=== PATIENT | female | born 1965 | race Caucasian/White ===

== ENCOUNTER 2020-02-08 17:52 | Outpatient (CLI) | payer BC | END 2020-02-08 23:59 | disposition home or self-care (01) | LOC: LAB.R 17:52 | PROVIDERS: ATTEND Physician Assistant Medical | DX: R30.0 Dysuria (principal) | CPT/HCPCS: 87086 ==

== ENCOUNTER 2022-11-27 08:00 | Outpatient (CLI) | payer BC ==
--- NOTE | 2022-11-27 15:00 | XRAY Report ---
PROCEDURE: Chest 2 View X-Ray INDICATIONS: ACUTE COUGH TECHNIQUE: 2 views of the chest were acquired. COMPARISON: None. FINDINGS: Surgical changes and devices: None. Lungs and pleura: No pleural effusions or pneumothorax. Lungs are clear. Mediastinum: Mediastinal contours appear normal. Heart size is normal. Bones and chest wall: No suspicious bony lesions. Overlying soft tissues appear unremarkable. IMPRESSION: No acute cardiopulmonary process. Reviewed by: Yin Branch MD on 11/27/2022 2:58 PM PDT Approved by: Yin Branch MD on 11/27/2022 2:58 PM PDT Station ID: [id number]
== END 2022-11-27 23:59 | disposition home or self-care (01) ==
LOC: DI.S 08:00
PROVIDERS: ATTEND Emergency Medicine
DX: R05.1 Acute cough (principal)

== ENCOUNTER 2024-12-13 11:09 | Observation (INO) ==
[~2024-12-13 11:09] MED LIST: iohexoL-300 100 ML VIAL ONE
--- NOTE | 2024-12-13 11:13 | ED Physician Documentation ---
History of Present Illness Stated complaint Stated Complaint: CODE STROKE Chief complaint Chief Complaint: Neuro History obtained from History obtained from: Patient and EMS Additonal information Additional information: 59-year-old woman who had a left lower lobectomy for lung cancer very recently, about 10 days ago but with no history of neurologic problems, stroke or TIA. At 10 AM she developed aphasia and a flaccid left side. EMS was summoned and found her to have significant deficits, with normal blood sugar and blood pressure on the way here. During transport she has improved significantly and is back to normal. She is not anticoagulated. She tells me that she will not require any adjuvant therapy such as chemotherapy or radiation for the lung cancer. "They got it all." Meds/Allgy Home Medications Ambulatory Orders Medication Instructions Recorded Confirmed gabapentin 100 mg capsule mg 12/13/24 oxycodone 5 mg tablet 5 mg PO .6 hours PRN pain 12/13/24 Allergies Allergies Allergy/AdvReac Type Severity Reaction Status Date / Time Sulfa (Sulfonamide Allergy Unknown rash Verified 12/13/24 11:38 Antibiotics) PFSH Active Problems All Active Problems (Updated 12/13/24 @ 12:14 by Deangelo Hall MD) Asymptomatic occlusion of middle cerebral artery (Acute) Brain TIA (Acute) Social History Social History Do you feel safe in your home environment?: Yes Suffered physical, verbal, emotional, or financial abuse?: No Exam Exam Vital Signs: Vital Signs x48h Temp Pulse Resp BP Pulse Ox 12/13/24 11:30 74 17 120/59 L 96 12/13/24 11:15 36.3 C L 69 20 119/72 96 Constitutional normal general appearance and no apparent distress Respiratory breath sounds equal bilaterally, normal respiratory effort and clear to auscultation bilaterally Cardiovascular normal heart rate noted, regular rhythm noted and no murmur Gastrointestinal abdomen soft to palpation and nontender to palpation Neurology cotton tier II-XII intact, no movement abnormality noted, no focal motor deficit noted and GCS 15 NIH stroke scale of 0 on initial evaluation at 11:10 AM Results Vitals Vitals: Vital Signs - 24 hr 12/13/24 11:15 12/13/24 11:30 Temperature 36.3 C L Temperature Source Temporal Artery Scan Pulse Rate 69 74 Respiratory Rate 20 17 Blood Pressure 119/72 120/59 L O2 Saturation 96 96 O2 Source Room air Room air Pain Intensity 0 Oxygen O2 Source Room air EKG (time done) 1120: EKG releavant findings:: EKG personally interpreted by author of this note. Relevant findings are: Normal sinus rhythm with rate of 67. Probable LAE. No ST elevation or depression. No arrhythmias or ectopy. Labs Labs: Laboratory Tests 12/13/24 11:18 WBC 9.8 RBC 4.24 Hgb 12.4 Hct 39.0 MCV 92.0 MCH 29.2 MCHC 31.8 L RDW 13.5 Plt Count 290 MPV 9.2 Neut # (Auto) 6.5 Lymph # (Auto) 2.2 Sampson # (Auto) 0.8 Eos # (Auto) 0.2 Baso # (Auto) 0.1 Absolute Nucleated RBC 0.00 Nucleated RBC % 0.0 PT 12.0 INR 1.1 Sodium 140 Potassium 4.3 Chloride 106 Carbon Dioxide 28 Anion Gap 6.0 BUN 22 H Creatinine 0.8 Estimated GFR (MDRD) 73 L Glucose 139 H Calcium 9.3 Total Bilirubin 0.3 AST 12 ALT 12 Alkaline Phosphatase 63 Total Protein 6.3 L Albumin 4.1 Globulin 2.2 Albumin/Globulin Ratio 1.9 Lipase 10 L PD Medical Decision Making ED course ED course: 59-year-old woman who is 13 days out from a thoracotomy with left lower lobectomy (Clarified with family the surgery was on November 30) presents with strokelike symptoms resolved on arrival consistent with a TIA. She was sent over for CT/CTA. The plain CT was normal, but the CTA was read as a distal right M2 occlusion of the MCA. I discussed case with our telestroke neurologist, Dr. Elmore who recommended admission for MRI and aspirin therapy. No thrombolytics nor transfer for LVO. Discussed with family. They are desirous of being transferred to [place] for neurologic eval. She was administered aspirin and at the family's request [place] was called for potential transfer around 12:15 PM. Discharge Plan Discharge Patient Disposition: 02 Transfer Acute Care Hosp Condition: Stable Clinical Impression: Brain TIA, Asymptomatic occlusion of middle cerebral artery Stand Alone Forms: PCP List
[2024-12-13 11:24] LABS: BASOPHILS # (AUTO) 0.1 10^3/uL (0.0-0.1); BASOPHILS % (AUTO) 0.8 %; EOSINOPHILS # (AUTO) 0.2 10^3/uL (0.0-0.7); EOSINOPHILS % (AUTO) 1.8 %; HGB - HEMOGLOBIN 12.4 g/dL (12.0-16.0); LYMPHOCYTES # (AUTO) 2.2 10^3/uL (1.5-3.5); LYMPHOCYTES % (AUTO) 22.3 %; MEAN CORPUSCULAR HEMOGLOBIN 29.2 pg (27.0-31.0); MEAN CORPUSCULAR HGB CONC 31.8 g/dL (32.0-36.0); MEAN PLATELET VOLUME 9.2 fL (7.9-10.8); MONOCYTES # (AUTO) 0.8 10^3/uL (0.0-1.0); MONOCYTES % (AUTO) 8.2 %; NEUTROPHILS # (AUTO) 6.5 10^3/uL (1.5-6.6); NEUTROPHILS % (AUTO) 66.5 %; PLT - PLATELET COUNT 290 10^3/uL (130-450); RED BLOOD COUNT 4.24 10^6/uL (4.20-5.40); RED CELL DISTRIBUTION WIDTH 13.5 % (12.0-15.0); WHITE BLOOD COUNT 9.8 x10^3/uL (4.8-10.8)
[2024-12-13 11:29] LABS: INR 1.1 (0.8-1.2)
[2024-12-13 11:41] LABS: ALBUMIN 4.1 g/dL (3.2-5.5); ALBUMIN/GLOBULIN RATIO 1.9 (1.0-2.2); BILIRUBIN,TOTAL 0.3 mg/dL (0.2-1.0); CALCIUM 9.3 mg/dL (8.5-10.3); CREATININE 0.8 mg/dL (0.6-1.3); POTASSIUM 4.3 mmol/L (3.5-4.5); TOTAL PROTEIN 6.3 g/dL (6.4-8.9)
--- NOTE | 2024-12-13 11:43 | CT Report ---
PROCEDURE: CT Head W/O Stroke Protocol INDICATIONS: Neuro deficit, acute, stroke suspected TECHNIQUE: Noncontrast angled axial sections acquired from the foramen magnum to the vertex, with coronal reformats. For radiation dose reduction, the following was used: automated exposure control, adjustment of mA and/or kV according to patient size. COMPARISON: None. FINDINGS: Image quality: Diagnostic CSF spaces: Basal cisterns are patent. Lateral ventricles are symmetric. Volume: Vascular calcifications. Periventricular white matter disease is commonly seen with chronic microangiopathy. Volume loss is present. These findings are mild to moderate . Brain: No large territory loss of cain-white differentiation or acute intracranial hemorrhage Craniofacial structures: No displaced fracture. Sinuses are clear. Orbits are intact. IMPRESSION: No acute intracranial abnormality. Consider MRI if there is high concern for infarction. Discussed with ED WH This study fulfills neurological imaging criteria for inclusion or exclusion of acute stroke therapies based on available published neurological imaging guidelines. Reviewed by: Michel Kamara MD on 12/13/2024 11:41 AM PDT Approved by: Michel Kamara MD on 12/13/2024 11:41 AM PDT Station ID: [id number]
--- NOTE | 2024-12-13 11:54 | CT Report ---
PROCEDURE: CT Angio Head/Neck INDICATIONS: cva sx CONTRAST: 80ml omni 300 TECHNIQUE: After the administration of intravenous contrast, images werenacquired from the aortic arch through the [place] of [place]. 3-dimensional bagleki-hhnpgnzsf-odgosmfhsf (MIP) and volume rendering reformats were acquired of the central intracranial vasculature and neck separately. COMPARISON: None. FINDINGS: Image quality: Diagnostic Head angiography Anterior circulation: ICAs: Mild calcifications ACAs: Patent MCAs: Possible narrowing versus occlusion in the right superior M2 branch. Left MCA appears patent AComm: no aneurysm Venous sinuses: Not well assessed on this study Posterior circulation: Dominance: Right Vertebral arteries: Patent but tortuous Basilar artery: High-grade narrowing is seen at the basilar tip, just past the right AICAs. PComms: Dominant supply to the quantometer operator quantometer operator: Patent Neck angiography Aortic arch and subclavian arteries: No stenosis CCAs: Patent ICA origins (by NASCET criteria): no hemodynamically significant narrowing. ICAs: Patent ECAs: origins are patent. Vertebral arteries: Patent Soft tissues: no significant mass, aneurysm, or lymphadenopathy Lung apices: Azygos fissure. No apical pneumothorax Bones: Degenerative osseous changes. IMPRESSION: Right superior branch M2 occlusion (/). Discussed with Dr. Hall. High-grade narrowing at the basilar tip, favored to be chronic, as there is dominant supply to the quantometer operator from the communicating arteries. Other findings above. The estimate of stenosis included in the report of the imaging study was calculated using the NASCET method Reviewed by: Michel Kamara MD on 12/13/2024 11:53 AM PDT Approved by: Michel Kamara MD on 12/13/2024 11:53 AM PDT Station ID: [id number]
[2024-12-13] MEDS: ASPIRIN CHEW 81 MG TABLET PO STA (12:28)
[2024-12-13] MEDS: iohexoL-300 100 ML VIAL IVP ONE (12:31)
--- NOTE | 2024-12-13 14:08 | ED Physician Documentation ---
ED Addendum Addendum Addendum: Patient was signed out to me by Dr. Hall, see his note for full H&P on this patient. Briefly this is a 59-year-old female history of lung cancer lobectomy about 2 weeks ago at [facility]. She presented to the emergency department today with left-sided paralysis and slurred speech. This resolved but she has mild residual numbness in the left arm. She does appear to have an occlusion at the superior branch of the M2 artery. Dr. Vinson spoke with Dr. Elmore, teleneurology who recommended usual stroke care. Family requested transfer to [facility]. I spoke with Dr. Pearson, neurology at [facility] who agrees that the treatment for her case would be usual stroke care, MRI, echo and starting a DOAC. [facility] states that they are currently at 110% bed capacity. Family is going to discuss going to [place] versus staying at the hospital here. Patient and family are comfortable staying here. Discussed the case with the hospitalist who accepts. This document was made in part using voice recognition software. While efforts are made to proofread this document, sound alike and grammatical errors may occur. Discharge Plan Discharge Patient Disposition: 64 [facility] DC/Xfer Condition: Stable Clinical Impression: Brain TIA, Asymptomatic occlusion of middle cerebral artery Interventions: ED Admission Assessment Last Done: 12/13/24 16:07
[2024-12-13] MEDS: SODIUM CHLORIDE 0.9% 1,000 ML IV STA (15:09)
[2024-12-13] MEDS: ACETAMINOPHEN 325 MG TABLET PO STA (15:44)
[2024-12-13] MEDS ORDERED: ONDANSETRON ODT 4 MG TABLET TL PRN (16:10)
[2024-12-13] MEDS ORDERED: SODIUM CHLORIDE FLUSH 0.9% 10 ML SYRINGE IVP PRN (16:10)
--- NOTE | 2024-12-13 16:39 | HISTORY & PHYSICAL EXAMINATION ---
Chief Complaint Chief Complaint Chief Complaint: Left-sided weakness and numbness History of Present Illness Admitted From Admitted From:: Emergency department History Obtained From Records Reviewed: ED records History obtained from: Patient, , Dr. Jean Baptiste-ED attending Exam Limitations: None History of Present Illness HPI Comment/Other: Patient is a 59-year-old female who is 2 weeks s/p left lower lobe lobectomy due to adenocarcinoma of the lung, history of restless leg syndrome, history of hyperlipidemia, presenting to the ED with left-sided weakness and numbness as well as left-sided facial droop with slurred speech. Symptoms started at approximately 10 AM this morning and resolved approximately 2 hours later around the time at which she presented to the ED for further evaluation. She initially denied any blurry vision but states that shortly before admission she had a brief episode of seeing halos in the left visual field that have since resolved. She denies any headache.She denies any previous history of stroke, TIA, or other neurological events.Per patient, she has no lymphatic spread or metastatic disease and per patient, resection was definitive treatment for her cancer. She denies history of smoking. She denies history of cardiac disease or diabetes. She denies history of A-fib or known arrhythmia however she does state on review of systems that she has had episodes of a feeling of fast heartbeat in the past. She does wear an Apple Watch but is not sure if it is activated to detect atrial fibrillation. Here in the ED the patient was hemodynamically stable with normal blood pressures and otherwise normal vital signs. Lab work was reassuring and noncontributory. Initial head CT was unremarkable, CT angiogram of the head showed evidence of M2 occlusion but patent ICA and no other significant stenosis, no LVO. Per telestroke neurologist, no further treatment warranted at this time given resolution of symptoms so patient is not a candidate for thrombolytics. However, diagnostic workup is indicated including MRI, echocardiogram, A1c, lipid panel. Also, neurologist recommends starting patient on DOAC tomorrow. Meds/Allgy Home Medications Ambulatory Orders Medication Instructions Recorded Confirmed gabapentin 100 mg capsule mg 12/13/24 oxycodone 5 mg tablet 5 mg PO .6 hours PRN pain 12/13/24 Allergies Allergies Allergy/AdvReac Type Severity Reaction Status Date / Time Sulfa (Sulfonamide Allergy Unknown rash Verified 12/13/24 11:38 Antibiotics) PFSH Active Problems All Active Problems (Updated 12/13/24 @ 16:35 by Johnathon Thomas MD) RLS (restless legs syndrome) (Acute) HLD (hyperlipidemia) (Acute) Occlusion of middle cerebral artery (Acute) Asymptomatic occlusion of middle cerebral artery (Acute) Brain TIA (Acute) Surgical History Surgical History (Updated 12/13/24 @ 12:30 by Vandana Logan RN) History of lobectomy of lung Social History Social History Smoking Status: Never smoker Do you dip or chew tobacco?: No Relationship: Child Level: Independent Do you feel safe in your home environment?: Yes Suffered physical, verbal, emotional, or financial abuse?: No POLST Patient has POLST: No Review of Systems Status of ROS: 10 or more systems reviewed and unremarkable except as noted in history and below Exam Exam Vital Signs: Vital Signs x48h Temp Pulse Resp BP Pulse Ox 12/13/24 15:45 85 22 124/79 96 12/13/24 15:11 36.5 C 77 18 120/70 96 12/13/24 14:02 81 22 130/73 97 12/13/24 13:30 77 21 130/73 99 12/13/24 13:00 86 13 120/68 97 12/13/24 12:30 78 18 127/67 98 12/13/24 12:15 83 83 H 123/77 18 L 12/13/24 12:00 74 12 117/70 99 12/13/24 11:45 72 21 105/68 94 12/13/24 11:30 74 17 120/59 L 96 12/13/24 11:15 36.3 C L 69 20 119/72 96 Constitutional normal general appearance and no apparent distress Respiratory breath sounds equal bilaterally, normal respiratory effort and clear to auscultation bilaterally Cardiovascular normal heart rate noted, regular rhythm noted and no murmur Gastrointestinal abdomen soft to palpation and nontender to palpation Neurology vice president lending II-XII intact, no movement abnormality noted, no focal motor deficit noted and GCS 15 NIH stroke scale of 0 on my exam at approximately 4 PM Psychiatry mental status grossly normal, oriented x3 and thought process normal Conclusion/Plan Problem List (1) Brain TIA: Plan: * Symptoms resolved * Negative head CT * CT angiogram showing M2 occlusion * Place in obs with tele * Check ehco and MRI in am * Check A1C, lipid panel in am * Permissive HTN * IVF/hydration * Regular diet * ASA given in ED * Resume ASA in am * Per neuro reccs, DOAC tomorrow (2) Occlusion of middle cerebral artery: Plan: * See above (3) History of lobectomy of lung: Plan: * Pt w/ hx of lung CA, now s/p lobectomy 2 weeks ago * Check xray to r/o PTX as pt had some transient chest wall pain earlier * Pt considered higher risk for clot formation due to CA hx (4) HLD (hyperlipidemia): Plan: * Check lipid in am * Atorvastatin 40 mg in am (5) RLS (restless legs syndrome): Plan: * Resume home gabapentin Lab Results Lab results reviewed: Yes 12/13/24 11:18 12/13/24 11:18 Diagnostic Imaging Results Diagnostic Imaging Results: positive Final report reviewed Core Measures Anticipated LOS I expect patient to be DC'd or transferred within 96 hours.: Yes DVT/VTE - Prophylaxis VTE/DVT Device ordered at admit?: Yes Stroke - Rehab Assessment Rehab services assessment to be ordered?: Yes
--- NOTE | 2024-12-13 17:45 | XRAY Report ---
PROCEDURE: XR Chest 1V INDICATIONS: chest pain, recent lobectomy of LLL TECHNIQUE: One view of the chest was acquired. COMPARISON: 11/27/2022. FINDINGS: Surgical changes and devices: None. Lungs and pleura: Small left pleural effusion with left basilar atelectasis. No pneumothorax. Right lung is clear. Mediastinum: Mediastinal contours appear normal. Heart size is normal. Bones and chest wall: No suspicious bony lesions. Overlying soft tissues appear unremarkable. IMPRESSION: Small left pleural effusion and left basilar atelectasis. No pneumothorax. Right lung is clear. Reviewed by: Cricket Barboza MD on 12/13/2024 5:44 PM PDT Approved by: Cricket Barboza MD on 12/13/2024 5:44 PM PDT Station ID: [id number]
[2024-12-13] MEDS: SODIUM CHLORIDE FLUSH 0.9% 10 ML SYRINGE IVP SCH (18:39)
[2024-12-13] MEDS: GABAPENTIN 100 MG CAPSULE PO SCH (21:35)
[2024-12-13] MEDS: LIDOCAINE PATCH 4% TOP SCH (21:35)
[2024-12-13] MEDS: ATORVASTATIN 40 MG TABLET PO SCH (21:35)
[2024-12-13] MEDS: SENNA 8.6 MG TABLET PO SCH (21:35)
[2024-12-13] MEDS: oxyCODONE 5 MG TABLET PO PRN (21:35)
[2024-12-14] MEDS: ACETAMINOPHEN 325 MG TABLET PO PRN (00:33)
[2024-12-14] MEDS: IBUPROFEN 600 MG TABLET PO ONE (04:42)
[2024-12-14 04:48] LABS: BASOPHILS # (AUTO) 0.1 10^3/uL (0.0-0.1); BASOPHILS % (AUTO) 0.8 %; EOSINOPHILS # (AUTO) 0.2 10^3/uL (0.0-0.7); EOSINOPHILS % (AUTO) 2.5 %; HGB - HEMOGLOBIN 11.3 g/dL (12.0-16.0); LYMPHOCYTES # (AUTO) 2.2 10^3/uL (1.5-3.5); LYMPHOCYTES % (AUTO) 26.3 %; MEAN CORPUSCULAR HEMOGLOBIN 28.9 pg (27.0-31.0); MEAN CORPUSCULAR HGB CONC 31.4 g/dL (32.0-36.0); MEAN CORPUSCULAR VOLUME 92.1 fL (81.0-99.0); MEAN PLATELET VOLUME 9.7 fL (7.9-10.8); MONOCYTES # (AUTO) 0.7 10^3/uL (0.0-1.0); MONOCYTES % (AUTO) 8.2 %; NEUTROPHILS # (AUTO) 5.2 10^3/uL (1.5-6.6); PLT - PLATELET COUNT 259 10^3/uL (130-450); RED BLOOD COUNT 3.91 10^6/uL (4.20-5.40); RED CELL DISTRIBUTION WIDTH 13.8 % (12.0-15.0); WHITE BLOOD COUNT 8.4 x10^3/uL (4.8-10.8)
[2024-12-14 05:08] LABS: BUN - BLOOD UREA NITROGEN 18 mg/dL (6-20); CALCIUM 8.9 mg/dL (8.5-10.3); CARBON DIOXIDE - CO2 26 mmol/L (21-32); CHLORIDE 110 mmol/L (101-111); CHOL/HDL RATIO 3.3 (<4.4); CHOLESTEROL 173 mg/dL; CREATININE 0.7 mg/dL (0.6-1.3); GFR - MDRD 85 (>89); GLUCOSE 104 mg/dL (74-104); HDL CHOLESTEROL 53 mg/dL; LDL CHOLESTEROL,CALCULATED 105 mg/dL; POTASSIUM 4.2 mmol/L (3.5-4.5); SODIUM 141 mmol/L (135-145); TRIGLYCERIDES 77 mg/dL; VLDL CHOLESTEROL 15 mg/dL
[2024-12-14 07:50] LABS: ESTIMATED AVERAGE GLUCOSE 117 mg/dL (70-100); HEMOGLOBIN A1c% 5.7 % (4.27-6.07)
[2024-12-14] MEDS: ASPIRIN CHEW 81 MG TABLET PO SCH (10:15)
--- NOTE | 2024-12-14 11:27 | PHARMACY PROGRESS NOTE ---
Best Possible Medication History Admit Date and Time: 12/13/24 115102 Home Medications Medication Instructions Recorded Confirmed Type gabapentin 100 mg capsule 200 mg PO TID 12/13/2412/14 History oxycodone 5 mg tablet 5 mg PO HS PRN pain 12/13/24 12/14/24 History acetaminophen 500 mg tablet 500 mg PO DAILY PRN pain 0 12/14/24 12/14/24 History (Tylenol Extra Strength) rosuvastatin 5 mg tablet 5 mg PO DAILY 12/14/2412/14 History Processed by: Pharmacy (pharmacy sales representativeKerry) Medications reviewed in ED?: No Medication History completed: Yes Patient Interview: Completed Secondary Source(s): Insurance records (Patient states she takes rosuvastatin 5 mg daily, but last fill shows as May 2024) [facility] Statement: As the person ultimately responsible for medication therapy, providers are able to order a medication from an existing home medication list in [facility] via the "Reconcile Routine" prior to Confirmation of that medication by family readiness support assistant. Such practice is discouraged except when the physician, in their clinical judgment, deems that a medical need exists for a medication without regard to previous use.
--- NOTE | 2024-12-14 13:07 | MRI Report ---
PROCEDURE: MRI Brain WO INDICATIONS: TIA vs CVA, L sidea weakness TECHNIQUE: Multisequence MRI of the brain was performed without intravenous contrast. COMPARISON: Correlation is made with CT images from 12/14/2024 FINDINGS: Image quality: Excellent. CSF Spaces: Basal cisterns are patent. No extra-axial fluid collections. Ventricles are normal in size and shape. Brain: Abnormal diffusion-weighted signal can be seen involving the right frontal parietal region superiorly. Developing T2 weighted signal can be seen within this region, as demonstrated on series 7 image 17. There is a mild degree of susceptibility artifact within this region. No intracranial hemorrhage. Olsen/white matter interface is normal. Brainstem appears normal. No chronic ischemic insults. Normal intravascular flow voids are present. Skull and face: Calvarium has normal marrow signal. Orbits appear normal. Sinuses: Sinuses and mastoids are clear. IMPRESSION: A subacute infarction is seen within the superior aspect of the right frontoparietal region. This cannot be seen on the recent CT, even in retrospect. There is susceptibility artifact within this region, which is consistent with interval petechial hemorrhage. Note: Case discussed by telephone with Dr. Erickson at 1:04 PM [place] time on 12/14/2024. Reviewed by: Immanuel Gagnon MD on 12/14/2024 12:05 PM MARCELINO Approved by: Immanuel Gagnon MD on 12/14/2024 12:05 PM MARCELINO Station ID: [id number]
--- NOTE | 2024-12-14 14:07 | PT Plan of Care ---
PT Inpatient Plan of Care DIAGNOSIS Diagnosis: CVA Referring Provider: Johnathon Thomas Patient Status: Observation CHIEF COMPLAINT Chief Complaint: L sided weakness Onset of Chief Complaint: ANDROID FRAMEWORK DEVELOPER on 12/13/24 MEDICAL/SURGICAL HISTORY Surgical History (Updated 12/13/24 @ 12:30 by Vandana Logan RN) History of lobectomy of lung BALANCE/FUNCTIONAL RESULTS Sitting Balance: Good Standing Balance: Good Kilgore Balance Evaluation Total Score: 56 Kilgore Balance Test Interpretation: Low Fall Risk ASSESSMENT Assessment: The pt is a 59 y/o who arrived to the ED on 12/13/24 due to sudden onset of L sided weakness, she was hospitalized with TIA vs CVA and recent MRI was remarkable for subacute infarct within the superior aspect of the right frontoparietal region. PMH includes lung CA and she is ~2 weeks s/p L lobectomy, please see chart for complete medical hx. The pt was received sitting comfortably while visiting with her family. She presented today without significant asymmetry of MMT in either LE and UE, intact sensation grossly, and good standing balance with a perfect Kilgore score of 56. She did, however have mild coordination deficits in L UE and LE. At this time recommend that the pt DC home with OPPT for further rehab if coordination deficits persist. At the end of the session the pt had all needs met and was being taken to have an MRI. RN, PHOTORESIST CONTACT PRINTER, and MD all updated on pt's status and DC rec. No goals will be set as this is an eval only. PATIENT/FAMILY GOALS Patient/Family Goals: To be able to go home safely PLAN Frequency: Evaluation only, no further P.T. DISCHARGE RECOMMENDATIONS Discharge Location: Previous Living Situation Support/Services Needed: Outpt. P.T. Other Discharge Equipment: no required DME Transport Needs at Discharge: Personal vehicle
--- NOTE | 2024-12-14 17:55 | PROVIDER PROGRESS NOTE ---
Subjective Prog Note Date Prog Note Date: 12/14/24 Prog Note Time: 17:48 Subjective Pt reports feeling: Improved Subjective: Subjectively the patient is feeling much better when it comes to her stroke symptoms. Her left upper and lower extremities are reported to be almost entirely normalized. She has no symptoms of facial droop, or speech difficulty. She does however report some mood instability that started yesterday after she presented for the stroke. Even discussing this with me she started tearing up. She also reports some degree of anxiety. Current Medications Current Medications Current Medications: Current Medications Generic Name Dose Route Start Last Admin Trade Name Freq PRN Reason Stop Dose Admin Acetaminophen 650 mg 12/13/24 16:10 12/14/24 13:13 Acetaminophen 325 Mg Tablet PO 650 mg Q4HR PRN Administration Pain 1 to 4, or Fever Aspirin 81 mg 12/14/24 09:00 12/14/24 10:15 Aspirin Chew 81 Mg Tablet PO 81 mg DAILY JOEL Administration Atorvastatin Calcium 40 mg 12/13/24 21:00 12/13/24 21:35 Atorvastatin 40 Mg Tablet PO 40 mg QPM JOEL Administration Gabapentin 200 mg 12/13/24 22:00 12/14/24 14:07 Gabapentin 100 Mg Capsule PO 200 mg TID JOEL Administration Lidocaine 1 patch 12/13/24 21:00 12/14/24 13:22 Lidocaine Patch 4% TOP Not Given DAILY JOLE Ondansetron HCl 4 mg 12/13/24 16:10 Ondansetron Odt 4 Mg Tablet TL Q6HR PRN Nausea / Vomiting Oxycodone HCl 5 mg 12/13/24 17:06 12/13/24 21:35 Oxycodone 5 Mg Tablet PO 5 mg Q8H PRN Administration Moderate Pain (Level 4-6) Senna 8.6 mg 12/13/24 21:00 12/14/24 10:15 Senna 8.6 Mg Tablet PO 8.6 mg BID JOEL Administration Sodium Chloride 10 ml 12/13/24 16:10 Sodium Chloride Flush 0.9% 10 Ml Syringe IVP PRN PRN NEEDED PER PROVIDER ORDERS Sodium Chloride 10 ml 12/13/24 17:00 12/14/24 10:15 Sodium Chloride Flush 0.9% 10 Ml Syringe IVP 10 ml 0100,0900,1700 JOEL Administration Objective Vital Signs/Intake & Output Reviewed Vital Signs: Yes Vital Signs: Vital Signs x48h Temp Pulse Resp BP Pulse Ox 12/14/24 15:41 37.4 C 73 22 127/86 98 12/14/24 13:00 36.6 C 81 16 116/76 96 Intake & Output: Intake & Output 12/11/24 12/12/24 12/13/24 12/14/24 23:59 23:59 23:59 23:59 Intake Total 1120 / 1120 1580 / 1580 Balance 1120 / 1120 1580 / 1580 Weight (kg) 66.8 kg Objective General Appearance: positive No acute distress and Alert Eyes Bilateral: positive Normal inspection, PERRL and EOMI ENT: positive ENT inspection nml Neck: positive Nml inspection Respiratory: positive Chest non-tender and No respiratory distress; negative Wheezes Cardiovascular: positive Regular rate & rhythm, No murmur and No gallop Abdomen: positive Non-tender, No organomegaly and Nml bowel sounds Skin: positive Color nml Extremities: positive Full ROM and Nml appearance Neurologic/Psychiatric: positive Oriented x3, CN's nml (2-12), Motor nml, Sensation nml and Mood/affect nml (She did become intermittently tearful but generally speaking her mood is appropriate); negative Weakness, Facial droop or Slurred/abnml speech Lab Results 12/15/24 04:10 12/15/24 04:10 Other Labs: Lab Results x24hrs 12/14/24 Range/Units 04:27 WBC 8.4 (4.8-10.8) x10^3/uL RBC 3.91 L (4.20-5.40) 10^6/uL Hgb 11.3 L (12.0-16.0) g/dL Hct 36.0 L (37.0-47.0) % MCV 92.1 (81.0-99.0) fL MCH 28.9 (27.0-31.0) pg MCHC 31.4 L (32.0-36.0) g/dL RDW 13.8 (12.0-15.0) % Plt Count 259 (130-450) 10^3/uL MPV 9.7 (7.9-10.8) fL Neut # (Auto) 5.2 (1.5-6.6) 10^3/uL Lymph # (Auto) 2.2 (1.5-3.5) 10^3/uL [place]one # (Auto) 0.7 (0.0-1.0) 10^3/uL Eos # (Auto) 0.2 (0.0-0.7) 10^3/uL Baso # (Auto) 0.1 (0.0-0.1) 10^3/uL Absolute Nucleated RBC 0.00 x10^3/uL Nucleated RBC % 0.0 /100WBC Sodium 141 (135-145) mmol/L Potassium 4.2 (3.5-4.5) mmol/L Chloride 110 (101-111) mmol/L Carbon Dioxide 26 (21-32) mmol/L Anion Gap 5.0 L (6-13) BUN 18 (6-20) mg/dL Creatinine 0.7 (0.6-1.3) mg/dL Estimated GFR (MDRD) 85 L (>89) Glucose 104 (74-104) mg/dL Estimat Average Glucose 117 H (70-100) mg/dL Hemoglobin A1c % 5.7 (4.27-6.07) % Calcium 8.9 (8.5-10.3) mg/dL Triglycerides 77 mg/dL Cholesterol 173 ( - 200) mg/dL LDL Cholesterol, Calc 105 ( - 129) mg/dL VLDL Cholesterol 15 mg/dL HDL Cholesterol 53 L (60 - ) mg/dL LDL/HDL Ratio 2.0 (<4.4) Cholesterol/HDL Ratio 3.3 (<4.4) Diagnostic Imaging Diagnostic Imaging Results: positive Final report reviewed Assessment/Plan Problem List (1) Cerebrovascular accident (CVA) involving middle cerebral artery territory: Impression: * MRI report reveals subacute infarcts involving the right frontal parietal region there is also interval petechial hemorrhage * I discussed these findings with the radiologist Dr. Gagnon, as well as the neurologist on-call at [facility] Dr. Preston Gonsales. He was able to review the MRI images that were pushed to their system. After doing so in discussing the patient with me he felt that appropriate post stroke treatment would be full dose aspirin 325 mg once daily. He did not feel that at this point she needed any further repeat imaging. He stated that as long as the echocardiogram does not reveal evidence of a thrombus then this can start tomorrow otherwise he would recommend waiting 4 days. * In addition, he stated that if atrial fibrillation is not confirmed, he would not recommend initiating DOAC therapy. He does however recommend outpatient follow-up with the [facility] neuro clinic who can be reached at [phone]. * At this time, echocardiogram is pending report * He also recommended outpatient workup for suspected paroxysmal atrial fibrillation, and the patient confirms that she already has a Zio patch on order * Patient elected to stay overnight for further observation with continued telemetry monitoring awaiting echocardiogram results * Given that the patient will be in house, I will defer aspirin until echocardiogram is read, most likely tomorrow (2) History of lobectomy of lung: Impression: * This is thought to be definitive treatment for her lung cancer, and chest x- ray reveals no evidence of pneumothorax though there is trace pleural effusion Patient is otherwise stable though she does take gabapentin for both some of the pleuritic pain as well as restless leg syndrome (3) HLD (hyperlipidemia): Impression: * Patient's lipid panel reviewed, LDL slightly elevated at 105 * Will continue atorvastatin 40 mg daily (4) RLS (restless legs syndrome): Impression: * Continue gabapentin * Patient also reporting some anxiety difficulty sleeping, will add as needed hydroxyzine and if still ineffective could consider adding trazodone as needed
[2024-12-14] MEDS: traZODone 50 MG TABLET PO PRN (20:11)
[2024-12-14] MEDS: hydrOXYzine PAMOATE 25 MG CAPSULE PO PRN (20:11)
[2024-12-15 04:45] LABS: BASOPHILS # (AUTO) 0.1 10^3/uL (0.0-0.1); EOSINOPHILS # (AUTO) 0.2 10^3/uL (0.0-0.7); EOSINOPHILS % (AUTO) 2.7 %; HCT - HEMATOCRIT 35.9 % (37.0-47.0); HGB - HEMOGLOBIN 11.7 g/dL (12.0-16.0); LYMPHOCYTES % (AUTO) 24.9 %; MEAN CORPUSCULAR HEMOGLOBIN 29.5 pg (27.0-31.0); MEAN CORPUSCULAR HGB CONC 32.6 g/dL (32.0-36.0); MEAN CORPUSCULAR VOLUME 90.4 fL (81.0-99.0); MEAN PLATELET VOLUME 9.7 fL (7.9-10.8); MONOCYTES # (AUTO) 0.8 10^3/uL (0.0-1.0); NEUTROPHILS # (AUTO) 4.9 10^3/uL (1.5-6.6); NEUTROPHILS % (AUTO) 61.3 %; PLT - PLATELET COUNT 261 10^3/uL (130-450); RED BLOOD COUNT 3.97 10^6/uL (4.20-5.40); RED CELL DISTRIBUTION WIDTH 13.9 % (12.0-15.0)
[2024-12-15 05:04] LABS: CREATININE 0.8 mg/dL (0.6-1.3)
--- NOTE | 2024-12-15 12:41 | ECHO Report ---
Version: 1 Study ID: [id number] [id number] Adult Echocardiogram Report Name: RICHARD PACHECO Study Date: 12/14/2024, 2: 51 PM Patient Location: [id number] HR: 73 bpm : 1965 (MM/DD/YYYY) Gender: Female Height: 65 in Age: 59 Years Weight: 147 lb Reason For Study: TIA vs CVA History: Subopt. and limited images due to Supine, Breast implants and surg. wound under left breast. Interpretation Summary 1. The left ventricle is normal in size. There is ormal left ventricular wall thickness. No thrombus seen in the left ventricle. Normal systolic function with EF 60-65%. 2. The right ventricle is normal in size and function. 3. Negative for ASD. Negative Saline Contrast study (Bubble Study). No chunt noted. 4. No valvular abnormality noted. Left Ventricle: The left ventricle is normal in size. There is normal left ventricular wall thickness. No thrombus seen in the left ventricle. The left ventricular ejection fraction is normal. The visual left ventricular ejection fraction is estimated at 60 to 65%. The overall diastolic pattern is one of normal left ventricular relaxation and filling pressures. Right Ventricle: The right ventricle is normal in size and function. Aortic Valve: The aortic valve is normal in structure and function. No hemodynamically significant valvular aortic stenosis. No aortic regurgitation is present. Mitral Valve: The mitral valve leaflets are structurally normal with normal motion. Doming of the mitral leaflets is present. There is trace mitral regurgitation. Tricuspid Valve: The tricuspid valve is structurally normal. There is no tricuspid stenosis. Trace tricuspid regurgitation present. Pulmonic Valve: The pulmonic valve is normal in structure and function. Trace pulmonic valvular regurgitation is present. Left Atrium: The left atrial size is normal. Right Atrium: Right atrial size is normal. Atrial Septum: The interatrial septum appears normal, without evidence of shunt by 2D imaging and color Doppler. Test was negative for ASD. Negative Saline Contrast study(Bubble Study). Aorta: The ascending aorta is normal in size. Pulmonary Artery: The pulmonary artery is normal size. Inferior vena cava dynamics indicate normal right atrial pressures. The right ventricular systolic pressure is 23mmHg. Pericardium/Pleural Space: There is no pericardial effusion. A left pleural effusion is present. Doppler Measurements & Calculations Ao max P.9 mmHg Ao mean P.73 mmHg Ao V2 max: 85.6 cm/sec Ao V2 mean: 62.5 cm/sec Ao V2 VTI: 16.1 cm LV V1 max: 77.4 cm/sec LV V1 max P.39 mmHg LV V1 mean: 54.1 cm/sec LV V1 mean P.33 mmHg LV V1 VTI: 15.7 cm MV A max pepe: 78.9 cm/sec MV dec time: 0.28 sec MV DVI-pr: 0.86 MV E max pepe: 67.8 cm/sec MV max P.7 mmHg MV mean P.58 mmHg MV V2 max: 96.5 cm/sec MV V2 mean: 57.6 cm/sec MV V2 VTI: 24.5 cm PA max P.4 mmHg PA V2 max: 92.4 cm/sec TR max P.1 mmHg TR max pepe: 224.2 cm/sec MMode/2D Measurements & Calculations Ao root diam: 3.0 cm EF (est.): 52.9 % Heart Rate: 73.0 BPM Height (metric): 165.1 cm IVSd: 0.59 cm LVIDd: 4.6 cm LVIDs: 2.9 cm LVOT diam: 1.85 cm LVPWd: 0.69 cm Other Measurements & Calculations Ao mean P.73 mmHg Ao root diam: 3.0 cm Ao V2 max: 85.6 cm/sec Ao V2 mean: 62.5 cm/sec Ao V2 VTI: 16.1 cm ISMA(I,D): 2.6 cm² ISMA(V,D): 2.43 cm² BMI: 24.5 kilograms/m² BSA: 1.74 m² [facility] 1.76 m² EDV(Teich): 96.9 ml EF (est.): 52.9 % EF(Teich): 68.0 % ESV(Teich): 31.1 ml FS: 37.8 % Heart Rate: 73.0 BPM Height (metric): 165.1 cm IVSd: 0.59 cm LV V1 max: 77.4 cm/sec LV V1 mean: 54.1 cm/sec LV V1 mean P.33 mmHg LVIDd: 4.6 cm LVIDs: 2.9 cm LVOT area: 2.7 cm² LVOT diam: 1.85 cm LVPWd: 0.69 cm MV A max pepe: 78.9 cm/sec MV dec time: 0.28 sec MV DVI-pr: 0.86 MV E max pepe: 67.8 cm/sec MV E/A: 0.86 MV max P.7 mmHg MV mean P.58 mmHg MV V2 max: 96.5 cm/sec MV V2 mean: 57.6 cm/sec MV V2 VTI: 24.5 cm MVA(VTI): 1.72 cm² PA max P.4 mmHg PA V2 max: 92.4 cm/sec SV(LVOT): 42.0 ml TR max P.1 mmHg TR max pepe: 224.2 cm/sec TV max P.1 mmHg Weight (metric): 66.7 kg LA Vol Index: 24.1 ml/m² EF(sp-el): 50.0 % Justice Burton MD 12/15/2024, 12: 40 PM Ordering Physician: Johnathon Thomas Referring Physician: Deangelo Hall Performed By: GINA
--- NOTE | 2024-12-15 13:00 | Discharge Summary ---
"Discharge Summary Admit Date: 12/13/24 Discharge Date: 12/15/24 Discharging Provider: Johnathon Thomas MD Primary Care Provider: Greg Hinds NP Code Status: Attempt Resuscitation DIAGNOSES Admission Diagnoses: TIA Occlusion of middle cerebral artery History of lobectomy of lung HLD Restless leg syndrome Discharge Diagnoses with Status of Each Condition: CVA involving middle cerebral artery territoryimproved History of lobectomy of lungstable Hyperlipidemiastable Restless leg syndromestable HPI History of Present Illness: Patient is a 59-year-old female who is 2 weeks s/p left lower lobe lobectomy due to adenocarcinoma of the lung, history of restless leg syndrome, history of hyperlipidemia, presenting to the ED with left-sided weakness and numbness as well as left-sided facial droop with slurred speech. Symptoms started at approximately 10 AM this morning and resolved approximately 2 hours later around the time at which she presented to the ED for further evaluation. She initially denied any blurry vision but states that shortly before admission she had a brief episode of seeing halos in the left visual field that have since resolved. She denies any headache.She denies any previous history of stroke, TIA, or other neurological events.Per patient, she has no lymphatic spread or metastatic disease and per patient, resection was definitive treatment for her cancer. She denies history of smoking. She denies history of cardiac disease or diabetes. She denies history of A-fib or known arrhythmia however she does state on review of systems that she has had episodes of a feeling of fast heartbeat in the past. She does wear an Apple Watch but is not sure if it is activated to detect atrial fibrillation. Here in the ED the patient was hemodynamically stable with normal blood pressures and otherwise normal vital signs. Lab work was reassuring and noncontributory. Initial head CT was unremarkable, CT angiogram of the head showed evidence of M2 occlusion but patent ICA and no other significant stenosis, no LVO. Per telestroke neurologist, no further treatment warranted at this time given resolution of symptoms so patient is not a candidate for thrombolytics. However, diagnostic workup is indicated including MRI, echocardiogram, A1c, lipid panel. Also, neurologist recommends starting patient on DOAC tomorrow. CONSULTS | PROCEDURES Consultations: Telestroke neurology, Dr. Heidi Bernardo Procedures: CT angiogram head and neck 12/13/2024 FINDINGS: Image quality: Diagnostic Head angiography Anterior circulation: ICAs: Mild calcifications ACAs: Patent MCAs: Possible narrowing versus occlusion in the right superior M2 branch. Left MCA appears patent AComm: no aneurysm Venous sinuses: Not well assessed on this study Posterior circulation: Dominance: Right Vertebral arteries: Patent but tortuous Basilar artery: High-grade narrowing is seen at the basilar tip, just past the right AICAs. PComms: Dominant supply to the reservations sales agent reservations sales agent: Patent Neck angiography Aortic arch and subclavian arteries: No stenosis CCAs: Patent ICA origins (by NASCET criteria): no hemodynamically significant narrowing. ICAs: Patent ECAs: origins are patent. Vertebral arteries: Patent Soft tissues: no significant mass, aneurysm, or lymphadenopathy Lung apices: Azygos fissure. No apical pneumothorax Bones: Degenerative osseous changes. IMPRESSION: Right superior branch M2 occlusion (). Discussed with Dr. Hall. High-grade narrowing at the basilar tip, favored to be chronic, as there is dominant supply to the reservations sales agent from the communicating arteries. Other findings above. The estimate of stenosis included in the report of the imaging study was calculated using the NASCET method MRI Brain Impression (12/14/24) A subacute infarction is seen within the superior aspect of the right frontoparietal region. This cannot be seen on the recent CT, even in retrospect. There is susceptibility artifact within this region, which is consistent with interval petechial hemorrhage. HOSPITAL COURSE Hospital Course: (1) Cerebrovascular accident (CVA) involving middle cerebral artery territory: Impression: * MRI report reveals subacute infarcts involving the right frontal parietal region there is also interval petechial hemorrhage * I discussed these findings with the radiologist Dr. Gagnon, as well as the neurologist on-call at [facility] Dr. Preston Gonsales. He was able to review the MRI images that were pushed to their system. After doing so in discussing the patient with me he felt that appropriate post stroke treatment would be full dose aspirin 325 mg once daily. He did not feel that at this point she needed any further repeat imaging. He stated that as long as the echocardiogram does not reveal evidence of a thrombus then this can start tomorrow otherwise he would recommend waiting 4 days. * In addition, he stated that if atrial fibrillation is not confirmed, he would not recommend initiating DOAC therapy. He does however recommend outpatient follow-up with the [facility] neuro clinic who can be reached at [phone]. * At this time, echocardiogram is pending report * He also recommended outpatient workup for suspected paroxysmal atrial fibrillation, and the patient confirms that she already has a Zio patch on order * Patient elected to stay overnight for further observation with continued telemetry monitoring awaiting echocardiogram results * I discussed with Tory and her that the results of the echocardiogram were not yet reported however I felt confident that it would be unlikely to change the plan with respect to discharge. I informed her I would send her a prescription for aspirin 325 mg as recommended by neurology as well as the atorvastatin 40 mg daily * Fortunately she was already able to secure an appointment with neurology clinic tomorrow and they will be able to further advise her regarding poststroke care and secondary prevention * In the meantime, if I happen to receive report of the echocardiogram while I am on duty I will be happy to call her with the results (2) History of lobectomy of lung: Impression: * This is thought to be definitive treatment for her lung cancer, and chest x- ray reveals no evidence of pneumothorax though there is trace pleural effusionPatient is otherwise stable though she does take gabapentin for both some of the pleuritic pain as well as restless leg syndrome (3) HLD (hyperlipidemia): Impression: * Patient's lipid panel reviewed, LDL slightly elevated at 105 * Will continue atorvastatin 40 mg daily (4) RLS (restless legs syndrome): Impression: * Continue gabapentin * Patient also reporting some anxiety difficulty sleeping, will add as needed hydroxyzine and if still ineffective could consider adding trazodone as needed ALLERGIES Allergies Allergy/AdvReac Type Severity Reaction Status Date / Time Sulfa (Sulfonamide Allergy Unknown rash Verified 12/13/24 11:38 Antibiotics) MEDICATIONS Ambulatory Orders Medication Instructions Recorded Confirmed gabapentin 100 mg capsule 200 mg PO TID 12/13/2412/14 oxycodone 5 mg tablet 5 mg PO HS PRN pain 12/13/24 12/14/24 acetaminophen 500 mg tablet 500 mg PO DAILY PRN pain 0 12/14/24 12/14/24 (Tylenol Extra Strength) aspirin 325 mg capsule 325 mg PO DAILY #90 caps atorvastatin 40 mg tablet 40 mg PO QPM #90 tabs PHYSICAL EXAM AT DISCHARGE Vital Signs: Vital Signs x48h Temp Pulse Resp BP Pulse Ox 12/15/24 08:12 36.6 C 80 16 117/80 98 General Appearance: positive No acute distress and Alert Respiratory: positive No respiratory distress and Breath sounds nml; negative Wheezes Cardiovascular: positive Regular rate & rhythm, No murmur and No gallop Abdomen: positive Non-tender, No organomegaly, Nml bowel sounds and No distention Skin: positive Color nml Extremities: positive Nml appearance Neurologic/Psychiatric: positive Oriented x3, CN's nml (2-12) and Motor nml; negative Facial droop LABS 12/15/24 04:10 12/15/24 04:10 DIAGNOSTIC IMAGING Diagnostic Imaging Results: Final report reviewed TIME SPENT Time Spent in Discharge (Minutes): 36 Discharge Plan Discharge Patient Disposition: 01 Home, Self Care Condition: Stable Medically Cleared Date:: 12/15/24 Prescriptions: New atorvastatin 40 mg Tablet 40 mg PO QPM Qty: 90 0RF aspirin 325 mg capsule 325 mg PO DAILY Qty: 90 0RF Continued oxycodone 5 mg tablet 5 mg PO HS PRN (Reason: pain) gabapentin 100 mg capsule 200 mg PO TID acetaminophen [Tylenol Extra Strength] 500 mg tablet 500 mg PO DAILY PRN (Reason: pain) Discontinued rosuvastatin 5 mg tablet 5 mg PO DAILY Diet: Cardiac Print Language: Romanian Patient Instructions: Stroke Mood Swings Depression, Risk Factors for Stroke, Prevent Recurrent Stroke Active Stand Alone Forms: PCP List Follow-up Care: Greg Hinds NP [Primary Care Provider] -"
[2024-12-15 13:31] VITALS: BP 123/76; TEMP 98.2; O2SAT 98
[2024-12-15] MEDS: ATORVASTATIN 40 MG TABLET PO ONE (14:24)
[2024-12-15] MEDS: ASPIRIN 325 MG TABLET PO SCH (14:24)
== END 2024-12-15 14:30 | disposition home or self-care (01) ==
LOC: MS3 11:09 → ED 11:09 → MS3 16:08
PROVIDERS: ADMIT Family Medicine Sports Medicine; ATTEND Family Medicine Sports Medicine
DX: H53.19 Other subjective visual disturbances; G81.04 Flaccid hemiplegia affecting left nondominant side; G47.8 Other sleep disorders; I63.511 Cerebral infarction due to unspecified occlusion or stenosis of right middle cerebral artery; C34.90 Malignant neoplasm of unspecified part of unspecified bronchus or lung; Z90.2 Acquired absence of lung [part of]; R47.81 Slurred speech; R29.810 Facial weakness; G25.81 Restless legs syndrome; F41.9 Anxiety disorder, unspecified; E78.5 Hyperlipidemia, unspecified